=== PATIENT | female | born 1990 | race Caucasian/White ===

== ENCOUNTER 2023-06-22 16:05 | Emergency (ER) | payer OTHER ==
[~2023-06-22] VITALS: Ht 165.1 cm; Wt 83.6 kg
[2023-06-22 16:18] VITALS: BP 124/75; PULSE 78; RESP 19; TEMP 97.6; O2SAT 97
[2023-06-22] MEDS ORDERED: IBUP-2213 PO (17:17)
[2023-06-22] MEDS ORDERED: LID5T TP (17:17)
[2023-06-22] MEDS ORDERED: CYCL-711 PO (17:17)
[2023-06-22] MEDS ORDERED: IBUPROFEN 600 MG TAB PO ONE (17:30)
== END 2023-06-22 17:37 | disposition home or self-care (01) ==
LOC: MED 16:05
DX: S16.1XXA Strain of muscle, fascia and tendon at neck level, initial encounter (principal); V49.88XA Car occupant (driver) (passenger) injured in other specified transport accidents, initial encounter; Y93.89 Activity, other specified; Y92.89 Other specified places as the place of occurrence of the external cause; Y99.8 Other external cause status
CPT/HCPCS: 99283

== ENCOUNTER 2024-05-06 19:20 | Emergency (ER) | payer OTHER ==
[~2024-05-06] VITALS: Ht 165.1 cm; Wt 91.2 kg
[~2024-05-06 19:20] MED LIST: CYCL-711 PO; IBUP-2213 PO; LID5T TP
[2024-05-06 19:27] VITALS: BP 125/92; PULSE 82; RESP 18; TEMP 97.4; O2SAT 100
[2024-05-06 20:15] LABS: APPEARANCE,URINE CLEAR (CLEAR); BILIRUBIN,URINE NEGATIVE (NEGATIVE); BLOOD, URINE NEGATIVE (NEGATIVE); COLOR,URINE YELLOW (YELLOW); LEUKOCYTE ESTERASE ,URINE NEGATIVE (NEGATIVE); NITRITE, URINE NEGATIVE (NEGATIVE); PROTEIN,URINE NEGATIVE (NEGATIVE); UGLUCOSE NEGATIVE (NEGATIVE); UROBILINOGEN,URINE 0.2 EU/dL (0.2 - 1)
[2024-05-06] MEDS ORDERED: LID5T TP (20:30)
[2024-05-06] MEDS ORDERED: IBUP-2213 PO (20:30)
[2024-05-06] MEDS ORDERED: CYCL-711 PO (20:30)
[2024-05-06] MEDS: KETOROLAC 30 MG/ML VIAL IM ONE (20:40)
[2024-05-06] MEDS: LIDOCAINE 5% 1 EA PATCH TP ONE (20:41)
[2024-05-06 20:51] VITALS: BP 117/73; PULSE 78; RESP 18; TEMP 98.8; O2SAT 99
== END 2024-05-06 21:00 | disposition home or self-care (01) ==
LOC: MED 19:20
DX: M54.42 Lumbago with sciatica, left side (principal); Z79.899 Other long term (current) drug therapy; Z98.51 Tubal ligation status
CPT/HCPCS: 81003; 81025; 96372; 99283; J1885